=== PATIENT | female | born 1970 | race Caucasian/White ===

== ENCOUNTER 2023-08-11 04:54 | Emergency (ER) | payer OTHER ==
[~2023-08-11] VITALS: Ht 170.2 cm; Wt 86.0 kg
[2023-08-11 06:05] LABS: BASOPHILS # (AUTO) 0.1 X10'3 (0-0.2); BASOPHILS % (AUTO) 0.7 % (0-1); EOSINOPHILS # (AUTO) 0.3 X10'3 (0-0.9); EOSINOPHILS % (AUTO) 4.2 % (0-6); HEMATOCRIT 33.6 % (35.0-45.0); HEMOGLOBIN 11.1 g/dl (12.0-16.0); LYMPHOCYTES # (AUTO) 1.9 X10'3 (1.1-4.8); LYMPHOCYTES % (AUTO) 24.1 % (21-51); MEAN CORPUSCULAR HEMOGLOBIN 34.9 PG (27.0-31.0); MEAN CORPUSCULAR HGB CONC 33.1 g/dL (33.0-36.5); MEAN CORPUSCULAR VOLUME 105.3 FL (78-98); MEAN PLATELET VOLUME 7.6 FL (7.4-10.4); MONOCYTES # (AUTO) 0.7 X10'3 (0-0.9); MONOCYTES % (AUTO) 8.4 % (2-12); NEUTROPHILS % (AUTO) 62.6 % (42-75); PLATELET COUNT 160 X10'3 (140-440); RED BLOOD COUNT 3.19 X10'6 (4.20-5.60); RED CELL DISTRIBUTION WIDTH 15.1 % (11.5-14.5)
[2023-08-11 06:11] LABS: INR 1.7 INR; PROTHROMBIN TIME 17.5 SECONDS (9.0-12.0)
[2023-08-11 06:22] LABS: ALANINE AMINOTRANSFERASE 14 U/L (12-78); ALBUMIN 2.2 G/DL (3.4-5.0); ALKALINE PHOSPHATASE 154 IU/L (46-116); ANION GAP 6 (8-16); ASPARTATE AMINO TRANSFERASE 109 U/L (10-37); BILIRUBIN,TOTAL 4.5 MG/DL (0.1-1.0); BLOOD UREA NITROGEN 9 MG/DL (7-18); BUN/CREATININE RATIO 10.2 (10.0-20.0); CALCIUM 8.2 MG/DL (8.5-10.1); CHLORIDE 101 MMOL/L (99-107); CREATININE 0.88 MG/DL (0.40-0.90); ETHANOL < 10 MG/DL (<10); LIPASE 15 U/L (16-77); MAGNESIUM 1.8 MG/DL (1.5-2.4); PRO BRAIN NATRIURETIC PEPTIDE 544 PG/ML (0-125); SODIUM 134 MMOL/L (135-145); TOTAL CARBON DIOXIDE 26.8 MMOL/L (24-32); eCRCL 72 ML/MIN; eGFR 67 ML/MIN
[2023-08-11 06:24] LABS: ALBUMIN/GLOBULIN RATIO 0.5 (1.1-1.5); GLUCOSE 98 MG/DL (70-104); TOTAL PROTEIN 6.9 G/DL (6.4-8.2)
[2023-08-11 06:26] LABS: POTASSIUM 2.7 MMOL/L (3.5-5.1)
[2023-08-11] MEDS ORDERED: potassium Cl 20 mEq SR tablet PO STA (06:28)
[2023-08-11] MEDS ORDERED: potassium Cl 20mEq/100mL bag 100 ML IV SCH (06:30)
[2023-08-11] MEDS ORDERED: albumin (human) 25% 100 ML IV solution IV ONE (06:45)
[2023-08-11] MEDS ORDERED: phytonadione inj. 10 MG in normal saline 100ml IV soln 100 ML IV ONE (06:45)
[2023-08-11] MEDS ORDERED: normal saline 1000ml 1,000 ML IV ONE (06:45)
[2023-08-11] MEDS ORDERED: phytonadione 10 MG/1 ML amp PO ONE (07:00)
[2023-08-11] MEDS ORDERED: iohexol 300mg/ml 100ml inj. ONE (07:05)
--- NOTE | 2023-08-11 09:28 | NUR ---
PT WITH MOTHER AT BEDSIDE. POTASSIUM IV INFUSED WITH NS. ALBUMIN INFUSING AND WAITING FOR PARACENTESIS.
--- NOTE | 2023-08-11 10:56 | NUR ---
PROVIDER IS BEDSIDE PERFORMING PARACENTESIS. PROCEDURE AND ALL QUESTIONS ANSWERED. CONSENT SIGNED.
[2023-08-11 12:41] VITALS: BP 103/75; PULSE 91; RESP 18; TEMP 97.8; O2SAT 99
== END 2023-08-11 12:46 | disposition home or self-care (01) ==
LOC: ER 04:54
DX: K74.69 Other cirrhosis of liver (principal)
CPT/HCPCS: 36415; 49082; 71045; 74177; 80053; 80320; 83690; 83735; 83880; 85025; 85610; 96361; 96365; 96366; 99285; J3430; J3480; J3490; J7030; P9047; Q9967; 96375; A6449

== ENCOUNTER 2023-08-20 06:48 | Day surgery (SDC) | payer OTHER ==
[~2023-08-20] VITALS: Ht 170.2 cm; Wt 81.5 kg
[2023-08-20] VITALS (7 sets, daily range): BP systolic 105–130; BP diastolic 64–84; PULSE 75–94; RESP 15–17; TEMP 98.4; O2SAT 94–100
[2023-08-20] MEDS ORDERED: albumin 25% 100mL bottle x 1 IV PRN (07:10)
[2023-08-20] MEDS ORDERED: FURO40TA4 PO (07:13)
[2023-08-20] MEDS ORDERED: POTA10CA85 PO (07:13)
[2023-08-20] MEDS ORDERED: IBUP200C5 PO (07:13)
[2023-08-20] MEDS ORDERED: OMEP20TA43 PO (07:13)
== END 2023-08-20 10:18 | disposition home or self-care (01) ==
LOC: SSTAY O 06:48
PROVIDERS: ATTEND Radiology Vascular & Interventional Radiology
DX: K70.31 Alcoholic cirrhosis of liver with ascites (principal); K21.9 Gastro-esophageal reflux disease without esophagitis; Z90.49 Acquired absence of other specified parts of digestive tract; Z98.84 Bariatric surgery status; F10.21 Alcohol dependence, in remission; Z79.899 Other long term (current) drug therapy
CPT/HCPCS: 49083; C1729; P9047; A6258; A6449

== ENCOUNTER 2023-08-27 06:51 | Day surgery (SDC) | payer OTHER ==
[~2023-08-27] VITALS: Ht 170.2 cm; Wt 77.2 kg
[2023-08-27] VITALS (8 sets, daily range): BP systolic 96–112; BP diastolic 57–71; PULSE 73–104; RESP 14–16; TEMP 98.5; O2SAT 95–100
[~2023-08-27 06:51] MED LIST: FURO40TA4 PO; IBUP200C5 PO; OMEP20TA43 PO; POTA10CA85 PO
[2023-08-27] MEDS ORDERED: MAGN250T11 PO (07:02)
[2023-08-27] MEDS ORDERED: albumin 25% 100mL bottle x 1 IV PRN (07:20)
== END 2023-08-27 10:30 | disposition home or self-care (01) ==
LOC: SSTAY O 06:51
PROVIDERS: ATTEND Radiology Vascular & Interventional Radiology
DX: K70.31 Alcoholic cirrhosis of liver with ascites (principal); K21.9 Gastro-esophageal reflux disease without esophagitis; Z90.49 Acquired absence of other specified parts of digestive tract; Z98.84 Bariatric surgery status; F10.91 Alcohol use, unspecified, in remission; Z98.890 Other specified postprocedural states; Z79.899 Other long term (current) drug therapy
CPT/HCPCS: 49083; C1729; P9047; A6258; A6449

== ENCOUNTER 2023-09-03 07:16 | Day surgery (SDC) | payer OTHER ==
[2023-09-03] VITALS (9 sets, daily range): BP systolic 100–131; BP diastolic 58–80; PULSE 78–96; RESP 12–18; TEMP 97.7; O2SAT 92–100
[~2023-09-03] VITALS: Ht 170.2 cm; Wt 75.1 kg
[~2023-09-03 07:16] MED LIST changes: +MAGN250T11 PO
[2023-09-03] MEDS ORDERED: normal saline 1000ml 1,000 ML IV PRN (07:35)
[2023-09-03] MEDS ORDERED: albumin 25% 100mL bottle x 1 IV PRN (07:35)
== END 2023-09-03 10:55 | disposition home or self-care (01) ==
LOC: SSTAY O 07:16
PROVIDERS: ATTEND Radiology Diagnostic Radiology
DX: K70.31 Alcoholic cirrhosis of liver with ascites (principal); K21.9 Gastro-esophageal reflux disease without esophagitis; Z90.49 Acquired absence of other specified parts of digestive tract; Z98.84 Bariatric surgery status; F10.91 Alcohol use, unspecified, in remission; Z98.890 Other specified postprocedural states; Z79.899 Other long term (current) drug therapy
CPT/HCPCS: 49083; C1729; J7030; P9047; A4620; A6258; A6449

== ENCOUNTER 2023-09-10 07:30 | Day surgery (SDC) | payer OTHER ==
[2023-09-10] VITALS (8 sets, daily range): BP systolic 99–130; BP diastolic 47–71; PULSE 84–102; RESP 14–16; TEMP 97.8; O2SAT 100
[~2023-09-10] VITALS: Ht 170.2 cm; Wt 74.8 kg
[2023-09-10] MEDS ORDERED: normal saline 1000ml 1,000 ML IV PRN (07:50)
[2023-09-10] MEDS ORDERED: albumin 25% 100mL bottle x 1 IV PRN (07:50)
== END 2023-09-10 10:05 | disposition home or self-care (01) ==
LOC: SSTAY O 07:30
PROVIDERS: ATTEND Radiology Vascular & Interventional Radiology
DX: K70.31 Alcoholic cirrhosis of liver with ascites (principal); K21.9 Gastro-esophageal reflux disease without esophagitis; Z98.84 Bariatric surgery status; Z90.49 Acquired absence of other specified parts of digestive tract; Z72.89 Other problems related to lifestyle
CPT/HCPCS: 49083; C1729; A6258; A6449

== ENCOUNTER 2023-09-16 10:22 | Inpatient (IN) | payer OTHER ==
[~2023-09-16] VITALS: Ht 170.2 cm; Wt 72.4 kg
[2023-09-16] VITALS (11 sets, daily range): BP systolic 86–108; BP diastolic 47–64; PULSE 98–112; RESP 16–19; TEMP 97.3–98.4; O2SAT 97–100
[2023-09-16] MEDS ORDERED: ondansetron/PF 4mg/2ml inj IV ONE (10:50)
[2023-09-16] MEDS ORDERED: pantoprazole 40mg IV 80 MG in normal saline 100ml IV soln 100 ML IV ONE ×2 (10:50→11:00)
[2023-09-16] MEDS ORDERED: morphine 4 MG/ML inj SYRINge IV ONE (10:50)
[2023-09-16] MEDS ORDERED: normal saline 1000ML IV soln IVB ONE (10:50)
[2023-09-16] MEDS ORDERED: pantoprazole 40MG/NS 100ML BAG 100 ML IV ONE (10:55)
[2023-09-16] MEDS ORDERED: pantoprazole 40 MG vial IV ONE (11:05)
[2023-09-16] MEDS ORDERED: morphine 2 MG/ML inj. syringe IV ONE (11:10)
[2023-09-16] MEDS: pantoprazole 40MG/NS 100ML BAG 100 ML IV SCH ×2 (11:28→18:50)
[2023-09-16 11:30] LABS: BASOPHILS # (AUTO) 0.1 X10'3 (0-0.2); BASOPHILS % (AUTO) 0.9 % (0-1); EOSINOPHILS # (AUTO) 0.2 X10'3 (0-0.9); EOSINOPHILS % (AUTO) 2.4 % (0-6); HEMATOCRIT 26.1 % (35.0-45.0); HEMOGLOBIN 8.9 g/dl (12.0-16.0); LYMPHOCYTES # (AUTO) 1.4 X10'3 (1.1-4.8); LYMPHOCYTES % (AUTO) 14.4 % (21-51); MEAN CORPUSCULAR HEMOGLOBIN 33.5 PG (27.0-31.0); MEAN CORPUSCULAR HGB CONC 34.2 g/dL (33.0-36.5); MEAN CORPUSCULAR VOLUME 97.9 FL (78-98); MEAN PLATELET VOLUME 7.3 FL (7.4-10.4); MONOCYTES # (AUTO) 0.7 X10'3 (0-0.9); MONOCYTES % (AUTO) 6.8 % (2-12); NEUTROPHILS # (AUTO) 7.2 X10'3 (1.8-7.7); NEUTROPHILS % (AUTO) 75.5 % (42-75); PLATELET COUNT 168 X10'3 (140-440); RED BLOOD COUNT 2.66 X10'6 (4.20-5.60); RED CELL DISTRIBUTION WIDTH 14.8 % (11.5-14.5); WHITE BLOOD COUNT 9.5 X10'3 (4.5-11.0)
[2023-09-16 11:44] LABS: ALANINE AMINOTRANSFERASE 16 U/L (12-78); ALBUMIN 2.1 G/DL (3.4-5.0); ALKALINE PHOSPHATASE 113 IU/L (46-116); ANION GAP 10 (8-16); ASPARTATE AMINO TRANSFERASE 69 U/L (10-37); BILIRUBIN,TOTAL 4.4 MG/DL (0.1-1.0); BLOOD UREA NITROGEN 38 MG/DL (7-18); BUN/CREATININE RATIO 27.5 (10.0-20.0); CALCIUM 8.6 MG/DL (8.5-10.1); CHLORIDE 99 MMOL/L (99-107); CREATININE 1.38 MG/DL (0.40-0.90); LIPASE 26 U/L (16-77); MAGNESIUM 1.9 MG/DL (1.5-2.4); POTASSIUM 3.4 MMOL/L (3.5-5.1); SODIUM 133 MMOL/L (135-145); TOTAL CARBON DIOXIDE 24.5 MMOL/L (24-32); eCRCL 46 ML/MIN; eGFR 40 ML/MIN
[2023-09-16 11:52] LABS: ALBUMIN/GLOBULIN RATIO 0.5 (1.1-1.5); GLUCOSE 119 MG/DL (70-104); TOTAL PROTEIN 6.6 G/DL (6.4-8.2)
[2023-09-16 13:02] LABS: INR 1.6 INR; PROTHROMBIN TIME 16.9 SECONDS (9.0-12.0)
[2023-09-16] MEDS ORDERED: normal saline 1000ml 1,000 ML IV ONE ×2 (13:20→13:25)
[2023-09-16 14:01] LABS: BASOPHILS # (AUTO) 0.1 X10'3 (0-0.2); BASOPHILS % (AUTO) 0.6 % (0-1); EOSINOPHILS # (AUTO) 0.1 X10'3 (0-0.9); EOSINOPHILS % (AUTO) 0.8 % (0-6); HEMOGLOBIN 7.5 g/dl (12.0-16.0); LYMPHOCYTES # (AUTO) 1.9 X10'3 (1.1-4.8); LYMPHOCYTES % (AUTO) 19.5 % (21-51); MEAN CORPUSCULAR HEMOGLOBIN 34.1 PG (27.0-31.0); MEAN CORPUSCULAR HGB CONC 34.8 g/dL (33.0-36.5); MEAN PLATELET VOLUME 7.2 FL (7.4-10.4); MONOCYTES # (AUTO) 0.7 X10'3 (0-0.9); MONOCYTES % (AUTO) 7.2 % (2-12); NEUTROPHILS # (AUTO) 7.2 X10'3 (1.8-7.7); NEUTROPHILS % (AUTO) 71.9 % (42-75); PLATELET COUNT 134 X10'3 (140-440); RED BLOOD COUNT 2.21 X10'6 (4.20-5.60); RED CELL DISTRIBUTION WIDTH 14.7 % (11.5-14.5)
[2023-09-16 14:09] LABS: HEMATOCRIT 21.7 % (35.0-45.0)
[2023-09-16] MEDS ORDERED: MIDAZolam 1 MG/ML 5ML VIAL ONE (15:59)
[2023-09-16] MEDS ORDERED: fentaNYL/PF 50MCG/1 ML 2ML syringe ONE (15:59)
[2023-09-16] MEDS ORDERED: magnesium 4gm in 100ml NS 100 ML IV PRN (17:40)
[2023-09-16] MEDS ORDERED: HYDROcodone/acetaminophen 5mg/325mg tablet PO PRN (17:40)
[2023-09-16] MEDS ORDERED: magnesium hydroxide 30ml (MOM) UD suspension PO PRN (17:40)
[2023-09-16] MEDS ORDERED: potassium Cl 20 mEq SR tablet PO PRN (17:40)
[2023-09-16] MEDS ORDERED: diphenhydrAMINE 25mg capsule PO PRN (17:40)
[2023-09-16] MEDS ORDERED: HYDROcodone/acetaminophen 10/325mg tab PO PRN (17:40)
[2023-09-16] MEDS ORDERED: magnesium 2GM in 50ml NS 50 ML IV PRN (17:40)
[2023-09-16] MEDS ORDERED: morphine 2 MG/ML inj. syringe IV PRN ×2 (17:40)
[2023-09-16] MEDS ORDERED: acetaminophen 650mg rectal suppository RC PRN (17:40)
[2023-09-16] MEDS ORDERED: mag hydrox/Alum hydrox/simeth 30ml oral suspension PO PRN (17:40)
[2023-09-16] MEDS ORDERED: acetaminophen 325mg tablet PO PRN ×2 (17:40)
[2023-09-16] MEDS ORDERED: potassium Cl 40MEQ/1/2NS 520ml 520 ML IV PRN (17:40)
[2023-09-16] MEDS ORDERED: ondansetron/PF 4mg/2ml inj IV PRN (17:40)
[2023-09-16] MEDS ORDERED: pantoprazole 40MG/NS 100ML BAG 100 ML IV SCH (17:40)
[2023-09-16] MEDS: normal saline 1000ml 1,000 ML IV SCH (18:50)
[2023-09-16] MEDS: K and/or MAG REPLACEMENT MC SCH (18:51)
[2023-09-16] MEDS: docusate sod 100mg capsule PO SCH (18:52)
[2023-09-16 20:48] LABS: HEMATOCRIT 23.3 % (35.0-45.0); HEMOGLOBIN 8.1 g/dl (12.0-16.0); MEAN CORPUSCULAR HEMOGLOBIN 33.2 PG (27.0-31.0); MEAN CORPUSCULAR HGB CONC 34.7 g/dL (33.0-36.5); MEAN CORPUSCULAR VOLUME 95.5 FL (78-98); MEAN PLATELET VOLUME 7.2 FL (7.4-10.4); PLATELET COUNT 135 X10'3 (140-440); RED BLOOD COUNT 2.44 X10'6 (4.20-5.60); RED CELL DISTRIBUTION WIDTH 15.6 % (11.5-14.5); WHITE BLOOD COUNT 10.6 X10'3 (4.5-11.0)
[2023-09-16] MEDS: CefTRIAXone/D5W-Rocephin 1gm 50 ML IV SCH (21:18)
[2023-09-16] MEDS: hydrOXYzine 25 MG tablet PO SCH (21:18)
[2023-09-16 22:30] LABS: HEMATOCRIT 22.1 % (35.0-45.0); HEMOGLOBIN 7.7 g/dl (12.0-16.0); MEAN CORPUSCULAR HEMOGLOBIN 33.3 PG (27.0-31.0); MEAN CORPUSCULAR HGB CONC 34.8 g/dL (33.0-36.5); MEAN CORPUSCULAR VOLUME 95.7 FL (78-98); MEAN PLATELET VOLUME 7.2 FL (7.4-10.4); PLATELET COUNT 122 X10'3 (140-440); RED BLOOD COUNT 2.31 X10'6 (4.20-5.60); RED CELL DISTRIBUTION WIDTH 15.3 % (11.5-14.5); WHITE BLOOD COUNT 9.5 X10'3 (4.5-11.0)
[2023-09-17] VITALS (9 sets, daily range): BP systolic 92–99; BP diastolic 46–58; PULSE 90–106; RESP 14–21; TEMP 98–98.8; O2SAT 97–100
[2023-09-17 02:18] LABS: BASOPHILS # (AUTO) 0.1 X10'3 (0-0.2); BASOPHILS % (AUTO) 0.8 % (0-1); EOSINOPHILS # (AUTO) 0.2 X10'3 (0-0.9); EOSINOPHILS % (AUTO) 2.2 % (0-6); HEMOGLOBIN 7.7 g/dl (12.0-16.0); LYMPHOCYTES # (AUTO) 2.9 X10'3 (1.1-4.8); LYMPHOCYTES % (AUTO) 31.8 % (21-51); MEAN CORPUSCULAR HEMOGLOBIN 33.5 PG (27.0-31.0); MEAN CORPUSCULAR HGB CONC 34.8 g/dL (33.0-36.5); MEAN PLATELET VOLUME 7.1 FL (7.4-10.4); MONOCYTES # (AUTO) 0.6 X10'3 (0-0.9); MONOCYTES % (AUTO) 6.6 % (2-12); NEUTROPHILS # (AUTO) 5.3 X10'3 (1.8-7.7); NEUTROPHILS % (AUTO) 58.6 % (42-75); PLATELET COUNT 119 X10'3 (140-440); RED BLOOD COUNT 2.29 X10'6 (4.20-5.60); RED CELL DISTRIBUTION WIDTH 15.8 % (11.5-14.5); WHITE BLOOD COUNT 9.1 X10'3 (4.5-11.0)
[2023-09-17 03:21] LABS: ALANINE AMINOTRANSFERASE 16 U/L (12-78); ALBUMIN 1.8 G/DL (3.4-5.0); ALKALINE PHOSPHATASE 91 IU/L (46-116); ANION GAP 7 (8-16); ASPARTATE AMINO TRANSFERASE 57 U/L (10-37); BILIRUBIN,TOTAL 4.6 MG/DL (0.1-1.0); BLOOD UREA NITROGEN 40 MG/DL (7-18); CHLORIDE 103 MMOL/L (99-107); CREATININE 1.48 MG/DL (0.40-0.90); GLUCOSE 105 MG/DL (70-104); HDL CHOLESTEROL 33 MG/DL (35-60); LDL CHOLESTEROL 60 MG/DL (50-100); MAGNESIUM 1.9 MG/DL (1.5-2.4); POTASSIUM 3.6 MMOL/L (3.5-5.1); SODIUM 133 MMOL/L (135-145); eCRCL 43 ML/MIN; eGFR 37 ML/MIN
[2023-09-17 03:29] LABS: ALBUMIN/GLOBULIN RATIO 0.5 (1.1-1.5); PHOSPHORUS 3.9 MG/DL (2.3-4.5); TOTAL PROTEIN 5.5 G/DL (6.4-8.2)
[2023-09-17 03:30] LABS: CHOL/HDL RATIO 3.3 (0.00-4.99); CHOLESTEROL 109 MG/DL (0-200); TRIGLYCERIDES 62 MG/DL (20-135)
[2023-09-17 05:46] LABS: BILIRUBIN,URINE SMALL (Neg); CLARITY,URINE SLIGHTLY CLOUDY (Clear); COLOR,URINE YELLOW (Yellow); GLUCOSE, URINE NEGATIVE (Neg); KETONES,URINE TRACE mg/dl (Neg); LEUKOCYTE ESTERASE ,URINE NEGATIVE (Neg); OCCULT BLOOD,URINE NEGATIVE (Neg); PH,URINE 5.5 (4.8-8.0); PROTEIN,URINE NEGATIVE (Neg); URINE HCG NEGATIVE (NEG); UROBILINOGEN,URINE 0.2 E.U/dL (0.2-1.0)
[2023-09-17 05:47] LABS: UA COLLECTION TYPE VOIDED
[2023-09-17 05:52] LABS: NITRITES, URINE NEGATIVE (Neg)
[2023-09-17 05:59] LABS: SQUAMOUS EPITHELIAL CELL,UR MANY /LPF (FEW)
[2023-09-17 06:00] LABS: HYALINE CASTS 0-3 /LPF (NEGATIVE)
[2023-09-17 06:01] LABS: BACTERIA,URINE 1+ /HPF (Neg); RBC,URINE 0-2 /HPF (0-2); WBC,URINE 0-4 /HPF (0-4)
[2023-09-17] MEDS: K and/or MAG REPLACEMENT MC SCH ×2 (06:54→19:58)
[2023-09-17] MEDS: normal saline 1000ml 1,000 ML IV SCH ×2 (07:00→20:20)
[2023-09-17] MEDS: docusate sod 100mg capsule PO SCH ×2 (07:01→19:51)
[2023-09-17] MEDS: furosemide 20MG tablet PO SCH (07:02)
[2023-09-17] MEDS: CefTRIAXone/D5W-Rocephin 1gm 50 ML IV SCH (07:13)
[2023-09-17] MEDS: pantoprazole 40 MG vial IV SCH ×2 (07:13→19:50)
[2023-09-17] MEDS: spironolactone 50 MG tablet PO SCH (08:26)
[2023-09-17 09:20] LABS: HEMOGLOBIN 7.2 g/dl (12.0-16.0); MEAN CORPUSCULAR HEMOGLOBIN 32.8 PG (27.0-31.0); MEAN CORPUSCULAR HGB CONC 34.1 g/dL (33.0-36.5); MEAN CORPUSCULAR VOLUME 96.3 FL (78-98); MEAN PLATELET VOLUME 7.2 FL (7.4-10.4); PLATELET COUNT 109 X10'3 (140-440); RED CELL DISTRIBUTION WIDTH 15.5 % (11.5-14.5)
[2023-09-17 09:24] LABS: HEMATOCRIT 21.2 % (35.0-45.0)
[2023-09-17] MEDS: hydrOXYzine 25 MG tablet PO SCH (19:52)
[2023-09-17 20:02] LABS: HEMOGLOBIN 7.3 g/dl (12.0-16.0); MEAN CORPUSCULAR HEMOGLOBIN 33.2 PG (27.0-31.0); MEAN CORPUSCULAR HGB CONC 34.4 g/dL (33.0-36.5); MEAN CORPUSCULAR VOLUME 96.6 FL (78-98); MEAN PLATELET VOLUME 7.2 FL (7.4-10.4); PLATELET COUNT 103 X10'3 (140-440); RED BLOOD COUNT 2.19 X10'6 (4.20-5.60); RED CELL DISTRIBUTION WIDTH 15.3 % (11.5-14.5); WHITE BLOOD COUNT 6.5 X10'3 (4.5-11.0)
[2023-09-17 20:11] LABS: HEMATOCRIT 21.2 % (35.0-45.0)
[2023-09-18] VITALS (7 sets, daily range): BP systolic 88–105; BP diastolic 51–59; PULSE 54–93; RESP 13–20; TEMP 98–99.5; O2SAT 94–100
[2023-09-18] MEDS ORDERED: diazepam 5mg tablet PO ONE (03:10)
[2023-09-18] MEDS ORDERED: magnesium 4gm in 100ml NS 100 ML IV PRN (03:15)
[2023-09-18] MEDS ORDERED: potassium Cl 40MEQ/270ML bag 250 ML IV PRN (03:15)
[2023-09-18] MEDS ORDERED: magnesium 2GM in 50ml NS 50 ML IV PRN (03:15)
[2023-09-18] MEDS ORDERED: potassium Cl 20mEq/100mL bag 100 ML IV PRN (03:15)
[2023-09-18] MEDS ORDERED: potassium Cl 20 mEq SR tablet PO PRN (03:15)
[2023-09-18] MEDS ORDERED: potassium CL 10mEq/100ml bag 100 ML IV PRN (03:15)
[2023-09-18] MEDS ORDERED: potassium Cl 40MEQ/1/2NS 520ml 520 ML IV PRN (03:15)
[2023-09-18] MEDS: magnesium Cl slow-release 64mg tablet PO PRN ×3 (03:42→21:04)
[2023-09-18] MEDS: potassium Cl 20 mEq SR tablet PO PRN ×4 (03:42→21:04)
[2023-09-18 06:37] LABS: BASOPHILS % (AUTO) 0.8 % (0-1); EOSINOPHILS # (AUTO) 0.3 X10'3 (0-0.9); HEMATOCRIT 23.8 % (35.0-45.0); HEMOGLOBIN 8.1 g/dl (12.0-16.0); LYMPHOCYTES # (AUTO) 1.8 X10'3 (1.1-4.8); LYMPHOCYTES % (AUTO) 33.3 % (21-51); MEAN CORPUSCULAR HEMOGLOBIN 32.7 PG (27.0-31.0); MEAN CORPUSCULAR HGB CONC 34.1 g/dL (33.0-36.5); MONOCYTES # (AUTO) 0.4 X10'3 (0-0.9); NEUTROPHILS # (AUTO) 2.9 X10'3 (1.8-7.7); NEUTROPHILS % (AUTO) 52.9 % (42-75); PLATELET COUNT 88 X10'3 (140-440); RED BLOOD COUNT 2.49 X10'6 (4.20-5.60); RED CELL DISTRIBUTION WIDTH 15.4 % (11.5-14.5); WHITE BLOOD COUNT 5.5 X10'3 (4.5-11.0)
[2023-09-18 07:02] LABS: ALANINE AMINOTRANSFERASE 14 U/L (12-78); ALBUMIN 1.7 G/DL (3.4-5.0); ALKALINE PHOSPHATASE 82 IU/L (46-116); ANION GAP 10 (8-16); ASPARTATE AMINO TRANSFERASE 83 U/L (10-37); BILIRUBIN,TOTAL 4.1 MG/DL (0.1-1.0); BLOOD UREA NITROGEN 21 MG/DL (7-18); BUN/CREATININE RATIO 21.6 (10.0-20.0); CALCIUM 7.8 MG/DL (8.5-10.1); CHLORIDE 105 MMOL/L (99-107); CREATININE 0.97 MG/DL (0.40-0.90); GLUCOSE 88 MG/DL (70-104); MAGNESIUM 1.7 MG/DL (1.5-2.4); POTASSIUM 3.2 MMOL/L (3.5-5.1); SODIUM 137 MMOL/L (135-145); TOTAL CARBON DIOXIDE 21.7 MMOL/L (24-32); eCRCL 65 ML/MIN; eGFR 60 ML/MIN
[2023-09-18 07:16] LABS: ALBUMIN/GLOBULIN RATIO 0.5 (1.1-1.5); PHOSPHORUS 3.3 MG/DL (2.3-4.5); TOTAL PROTEIN 5.2 G/DL (6.4-8.2)
[2023-09-18] MEDS: K and/or MAG REPLACEMENT MC SCH ×2 (08:00→20:00)
[2023-09-18] MEDS: pantoprazole 40 MG vial IV SCH (08:13)
[2023-09-18] MEDS: docusate sod 100mg capsule PO SCH ×2 (08:14→20:00)
[2023-09-18] MEDS: furosemide 20MG tablet PO SCH (08:14)
[2023-09-18] MEDS: CefTRIAXone/D5W-Rocephin 1gm 50 ML IV SCH (08:14)
[2023-09-18] MEDS: spironolactone 50 MG tablet PO SCH (08:15)
[2023-09-18] MEDS: normal saline 1000ml 1,000 ML IV SCH (09:54)
[2023-09-18] MEDS: lactulose 20gm/30ml cup PO SCH (09:54)
[2023-09-18] MEDS: propranolol 10mg tablet PO SCH (09:54)
[2023-09-18] MEDS: sucralfate 1 gm tablet PO SCH ×3 (11:41→21:04)
[2023-09-18] MEDS: pantoprazole 40mg Tablet.DR PO SCH (21:04)
[2023-09-18] MEDS: hydrOXYzine 25 MG tablet PO SCH (21:04)
[2023-09-19] MEDS: normal saline 1000ml 1,000 ML IV SCH
[2023-09-19 02:00] VITALS: BP 89/53; PULSE 87; RESP 15; TEMP 99.7; O2SAT 91
[2023-09-19 06:00] VITALS: BP 102/61; PULSE 94; RESP 18; TEMP 98.3; O2SAT 100
[2023-09-19 06:31] LABS: BASOPHILS % (AUTO) 0.7 % (0-1); EOSINOPHILS # (AUTO) 0.4 X10'3 (0-0.9); EOSINOPHILS % (AUTO) 7.6 % (0-6); HEMATOCRIT 24.8 % (35.0-45.0); HEMOGLOBIN 8.4 g/dl (12.0-16.0); LYMPHOCYTES # (AUTO) 2.1 X10'3 (1.1-4.8); LYMPHOCYTES % (AUTO) 35.4 % (21-51); MEAN CORPUSCULAR HEMOGLOBIN 32.5 PG (27.0-31.0); MEAN CORPUSCULAR HGB CONC 33.7 g/dL (33.0-36.5); MEAN CORPUSCULAR VOLUME 96.4 FL (78-98); MEAN PLATELET VOLUME 7.2 FL (7.4-10.4); MONOCYTES # (AUTO) 0.4 X10'3 (0-0.9); MONOCYTES % (AUTO) 6.1 % (2-12); NEUTROPHILS # (AUTO) 2.9 X10'3 (1.8-7.7); NEUTROPHILS % (AUTO) 50.2 % (42-75); PLATELET COUNT 104 X10'3 (140-440); RED BLOOD COUNT 2.58 X10'6 (4.20-5.60); RED CELL DISTRIBUTION WIDTH 15.5 % (11.5-14.5); WHITE BLOOD COUNT 5.8 X10'3 (4.5-11.0)
[2023-09-19 06:42] LABS: ALANINE AMINOTRANSFERASE 17 U/L (12-78); ALBUMIN 1.7 G/DL (3.4-5.0); ALBUMIN/GLOBULIN RATIO 0.5 (1.1-1.5); ALKALINE PHOSPHATASE 91 IU/L (46-116); ANION GAP 7 (8-16); ASPARTATE AMINO TRANSFERASE 77 U/L (10-37); BILIRUBIN,TOTAL 3.1 MG/DL (0.1-1.0); BLOOD UREA NITROGEN 11 MG/DL (7-18); BUN/CREATININE RATIO 13.3 (10.0-20.0); CALCIUM 7.8 MG/DL (8.5-10.1); CHLORIDE 108 MMOL/L (99-107); CREATININE 0.83 MG/DL (0.40-0.90); GLUCOSE 89 MG/DL (70-104); MAGNESIUM 1.7 MG/DL (1.5-2.4); PHOSPHORUS 2.3 MG/DL (2.3-4.5); POTASSIUM 3.4 MMOL/L (3.5-5.1); SODIUM 136 MMOL/L (135-145); TOTAL PROTEIN 5.3 G/DL (6.4-8.2); eCRCL 76 ML/MIN; eGFR 72 ML/MIN
[2023-09-19] MEDS: docusate sod 100mg capsule PO SCH (07:28)
[2023-09-19] MEDS: propranolol 10mg tablet PO SCH (07:28)
[2023-09-19] MEDS: sucralfate 1 gm tablet PO SCH ×2 (07:28→11:37)
[2023-09-19] MEDS: furosemide 20MG tablet PO SCH (07:28)
[2023-09-19] MEDS: spironolactone 50 MG tablet PO SCH (07:28)
[2023-09-19] MEDS: lactulose 20gm/30ml cup PO SCH (07:28)
[2023-09-19] MEDS: pantoprazole 40mg Tablet.DR PO SCH (07:28)
[2023-09-19] MEDS: magnesium Cl slow-release 64mg tablet PO PRN (07:32)
[2023-09-19] MEDS: potassium Cl 20 mEq SR tablet PO PRN (07:32)
[2023-09-19] MEDS: K and/or MAG REPLACEMENT MC SCH (08:00)
[2023-09-19 10:04] VITALS: RESP 18; O2SAT 98
[2023-09-19] MEDS ORDERED: LACT10SO7 PO (10:12)
[2023-09-19] MEDS ORDERED: SPIR50TA5 PO (10:12)
[2023-09-19] MEDS ORDERED: PANT40TA54 PO (10:12)
[2023-09-19] MEDS ORDERED: FOLI0.4T6 PO (10:12)
[2023-09-19] MEDS ORDERED: MULT-1074 PO (10:12)
[2023-09-19] MEDS ORDERED: SUCR1TAB34 PO (10:12)
[2023-09-19] MEDS ORDERED: PROP10TA10 PO (10:12)
[2023-09-19] MEDS ORDERED: FURO20TA4 PO (10:38)
[2023-09-19] MEDS ORDERED: FERR324T4 PO (10:38)
== END 2023-09-19 12:02 | disposition home or self-care (01) | DRG 377 ==
LOC: ER 10:22 → ED HOLD 17:43 → PCU 3S 09-17 13:01
PROVIDERS: ADMIT Family Medicine; ATTEND Family Medicine
PROC: 30233N1 Transfusion of Nonautologous Red Blood Cells into Peripheral Vein, Percutaneous Approach (ICD-10-PCS; 2023-09-16)
PROC: 0W9G3ZZ Drainage of Peritoneal Cavity, Percutaneous Approach (ICD-10-PCS; principal; 2023-09-17)
DX: K25.4 Chronic or unspecified gastric ulcer with hemorrhage (principal); N17.0 Acute kidney failure with tubular necrosis; R57.8 Other shock; D62 Acute posthemorrhagic anemia; K70.31 Alcoholic cirrhosis of liver with ascites; I85.10 Secondary esophageal varices without bleeding; Z79.899 Other long term (current) drug therapy; Z87.11 Personal history of peptic ulcer disease; E83.42 Hypomagnesemia; E87.6 Hypokalemia; Z90.49 Acquired absence of other specified parts of digestive tract
CPT/HCPCS: 36415; 36430; 43227; 43236; 43255; 49083; 74176; 80053; 80061; 81001; 81025; 82103; 82140; 83036; 83690; 83735; 84100; 85025; 85027; 85610; 86870; 86885; 86900; 86901; 86902; 86905; 86922; 87081; 99152; 99153; 99285; A4620; A6258; C9113; G0378; J0696; J2250; J2405; J3010; J7030; J7040; P9016; Q0177

== ENCOUNTER 2023-09-24 07:19 | Day surgery (SDC) | payer OTHER ==
[2023-09-24] VITALS (7 sets, daily range): BP systolic 92–106; BP diastolic 62–71; PULSE 78–85; RESP 15–17; TEMP 97.9; O2SAT 98–100
[~2023-09-24] VITALS: Ht 170.2 cm; Wt 78.7 kg
[~2023-09-24 07:19] MED LIST changes: +FERR324T4 PO; +FOLI0.4T6 PO; +FURO20TA4 PO; -FURO40TA4 PO; -IBUP200C5 PO; +LACT10SO7 PO; -MAGN250T11 PO; +MULT-1074 PO; -OMEP20TA43 PO; +PANT40TA54 PO; -POTA10CA85 PO; +PROP10TA10 PO; +SPIR50TA5 PO; +SUCR1TAB34 PO
[2023-09-24] MEDS ORDERED: albumin 25% 100mL bottle x 1 IV PRN (07:35)
[2023-09-24] MEDS ORDERED: POTA10CA85 PO (07:54)
[2023-09-24] MEDS ORDERED: PROP10TA10 PO (08:43)
[2023-09-24] MEDS ORDERED: PANT-47 PO (08:43)
[2023-09-24] MEDS ORDERED: FOLI0.4T6 PO (08:43)
[2023-09-24] MEDS ORDERED: SPIR100T5 PO (08:43)
[2023-09-24] MEDS ORDERED: FURO-150 PO (08:43)
[2023-09-24] MEDS ORDERED: MULT-1085 PO (08:43)
[2023-09-24] MEDS ORDERED: SUCR1TAB PO (08:43)
[2023-09-24] MEDS ORDERED: LACT10SO7 PO (08:43)
== END 2023-09-24 10:16 | disposition home or self-care (01) ==
LOC: SSTAY O 07:19
PROVIDERS: ATTEND Radiology Vascular & Interventional Radiology
DX: K70.31 Alcoholic cirrhosis of liver with ascites (principal); D50.0 Iron deficiency anemia secondary to blood loss (chronic); K21.9 Gastro-esophageal reflux disease without esophagitis; Z87.19 Personal history of other diseases of the digestive system; Z98.890 Other specified postprocedural states; Z98.84 Bariatric surgery status; Z90.49 Acquired absence of other specified parts of digestive tract; F10.21 Alcohol dependence, in remission; Z79.899 Other long term (current) drug therapy
CPT/HCPCS: 49083; C1729; P9047; A6258; A6449

== ENCOUNTER 2023-10-08 06:26 | Day surgery (SDC) | payer OTHER ==
[~2023-10-08] VITALS: Ht 170.2 cm; Wt 72.4 kg
[2023-10-08] VITALS (8 sets, daily range): BP systolic 82–95; BP diastolic 52–64; PULSE 81–84; RESP 16–18; TEMP 98.2; O2SAT 100
[~2023-10-08 06:26] MED LIST changes: -FERR324T4 PO; +FURO-150 PO; -FURO20TA4 PO; -MULT-1074 PO; +MULT-1085 PO; +PANT-47 PO; -PANT40TA54 PO; +POTA10CA85 PO; +SPIR100T5 PO; -SPIR50TA5 PO; +SUCR1TAB PO; -SUCR1TAB34 PO
[2023-10-08] MEDS ORDERED: normal saline 1000ml 1,000 ML IV PRN (06:45)
[2023-10-08] MEDS ORDERED: albumin 25% 100mL bottle x 1 IV PRN (06:45)
== END 2023-10-08 09:40 | disposition home or self-care (01) ==
LOC: SSTAY O 06:26
PROVIDERS: ATTEND Radiology Vascular & Interventional Radiology
DX: R18.8 Other ascites (principal); R14.0 Abdominal distension (gaseous); K21.9 Gastro-esophageal reflux disease without esophagitis; Z90.49 Acquired absence of other specified parts of digestive tract; Z98.84 Bariatric surgery status
CPT/HCPCS: 49083; C1729; J3490; P9047; A6258

== ENCOUNTER 2023-10-15 07:58 | Day surgery (SDC) | payer OTHER ==
[2023-10-15] VITALS (7 sets, daily range): BP systolic 95–107; BP diastolic 47–67; PULSE 76–80; RESP 14–16; TEMP 98; O2SAT 100
[~2023-10-15] VITALS: Ht 170.2 cm; Wt 71.2 kg
[2023-10-15] MEDS ORDERED: albumin 25% 100mL bottle x 1 IV PRN (08:20)
== END 2023-10-15 10:45 | disposition home or self-care (01) ==
LOC: SSTAY O 07:58
PROVIDERS: ATTEND Radiology Vascular & Interventional Radiology
DX: K70.31 Alcoholic cirrhosis of liver with ascites (principal); D62 Acute posthemorrhagic anemia; K21.9 Gastro-esophageal reflux disease without esophagitis; Z87.19 Personal history of other diseases of the digestive system; Z98.84 Bariatric surgery status; Z90.49 Acquired absence of other specified parts of digestive tract; F10.21 Alcohol dependence, in remission; Z98.890 Other specified postprocedural states; Z79.899 Other long term (current) drug therapy
CPT/HCPCS: 49083; C1729; P9047; 92960; A6258; A6449

== ENCOUNTER 2023-10-22 06:37 | Day surgery (SDC) | payer OTHER ==
[~2023-10-22] VITALS: Ht 170.2 cm; Wt 70.1 kg
[2023-10-22] VITALS (8 sets, daily range): BP systolic 85–101; BP diastolic 54–65; PULSE 90–101; RESP 16; TEMP 98.7; O2SAT 100
[2023-10-22] MEDS ORDERED: albumin 25% 100mL bottle x 1 IV PRN (06:55)
[2023-10-22] MEDS ORDERED: OMEP20TA43 PO (07:25)
[2023-10-22] MEDS ORDERED: HYDR-3686 PO (07:25)
[2023-10-22] MEDS ORDERED: PANT40SU2 PO (08:52)
== END 2023-10-22 09:30 | disposition home or self-care (01) ==
LOC: SSTAY O 06:37
PROVIDERS: ATTEND Radiology Vascular & Interventional Radiology
DX: K70.31 Alcoholic cirrhosis of liver with ascites (principal); D62 Acute posthemorrhagic anemia; Z87.19 Personal history of other diseases of the digestive system; K21.9 Gastro-esophageal reflux disease without esophagitis; Z90.49 Acquired absence of other specified parts of digestive tract; Z98.84 Bariatric surgery status; F10.21 Alcohol dependence, in remission; Z98.890 Other specified postprocedural states; Z79.899 Other long term (current) drug therapy
CPT/HCPCS: 49083; C1729; P9047; 96360; A6258

== ENCOUNTER 2023-10-29 08:17 | Day surgery (SDC) | payer OTHER ==
[2023-10-29] VITALS (9 sets, daily range): BP systolic 90–98; BP diastolic 53–64; PULSE 78–84; RESP 14; TEMP 98.1; O2SAT 97–100
[~2023-10-29] VITALS: Ht 170.2 cm; Wt 67.7 kg
[~2023-10-29 08:17] MED LIST changes: +HYDR-3686 PO; -PANT-47 PO; +PANT40SU2 PO
[2023-10-29] MEDS: albumin 25% 100mL bottle x 1 IV PRN (10:05)
== END 2023-10-29 11:00 | disposition home or self-care (01) ==
LOC: SSTAY O 08:17
PROVIDERS: ATTEND Radiology Diagnostic Radiology
DX: K70.31 Alcoholic cirrhosis of liver with ascites (principal); D62 Acute posthemorrhagic anemia; K21.9 Gastro-esophageal reflux disease without esophagitis; Z87.19 Personal history of other diseases of the digestive system; Z90.49 Acquired absence of other specified parts of digestive tract; Z98.84 Bariatric surgery status; F10.91 Alcohol use, unspecified, in remission; Z98.890 Other specified postprocedural states; Z79.899 Other long term (current) drug therapy
CPT/HCPCS: 49083; C1729; P9047; A6258

== ENCOUNTER 2023-11-04 07:56 | Day surgery (SDC) | payer OTHER ==
[~2023-11-04] VITALS: Ht 170.2 cm; Wt 69.8 kg
[2023-11-04 08:20] VITALS: BP 89/61; PULSE 80; RESP 15; TEMP 97.9; O2SAT 97
[2023-11-04 09:21] VITALS: BP 91/60; PULSE 82; RESP 15; O2SAT 97
[2023-11-04 09:30] VITALS: RESP 15; O2SAT 97
[2023-11-04 09:38] VITALS: BP 103/61; PULSE 71; RESP 14; O2SAT 97
[2023-11-04] MEDS: albumin 25% 100mL bottle x 1 IV PRN (09:42)
[2023-11-04 09:51] VITALS: BP 90/58; PULSE 70; RESP 15; O2SAT 96
[2023-11-04 10:06] VITALS: BP 101/55; PULSE 77; RESP 14; O2SAT 99
== END 2023-11-04 10:35 | disposition home or self-care (01) ==
LOC: SSTAY O 07:56
PROVIDERS: ATTEND Radiology Vascular & Interventional Radiology
DX: K70.31 Alcoholic cirrhosis of liver with ascites (principal); K21.9 Gastro-esophageal reflux disease without esophagitis; D62 Acute posthemorrhagic anemia; Z90.49 Acquired absence of other specified parts of digestive tract; Z98.84 Bariatric surgery status; F10.91 Alcohol use, unspecified, in remission; Z98.890 Other specified postprocedural states; Z79.899 Other long term (current) drug therapy; Z87.19 Personal history of other diseases of the digestive system
CPT/HCPCS: 49083; C1729; P9047; A6258

== ENCOUNTER 2023-11-12 07:22 | Day surgery (SDC) | payer OTHER ==
[~2023-11-12] VITALS: Ht 7 cm; Wt 70.2 kg
[2023-11-12] VITALS (7 sets, daily range): BP systolic 83–94; BP diastolic 50–55; PULSE 91–96; RESP 16; TEMP 98.3; O2SAT 99–100
[~2023-11-12 07:22] MED LIST changes: -PROP10TA10 PO
[2023-11-12] MEDS ORDERED: albumin 25% 100mL bottle x 1 IV PRN (07:50)
== END 2023-11-12 10:40 | disposition home or self-care (01) ==
LOC: SSTAY O 07:22
PROVIDERS: ATTEND Radiology Vascular & Interventional Radiology
DX: K70.31 Alcoholic cirrhosis of liver with ascites (principal); D62 Acute posthemorrhagic anemia; K21.9 Gastro-esophageal reflux disease without esophagitis; Z98.890 Other specified postprocedural states; Z87.19 Personal history of other diseases of the digestive system; Z79.899 Other long term (current) drug therapy; Z90.49 Acquired absence of other specified parts of digestive tract; Z98.84 Bariatric surgery status; F10.91 Alcohol use, unspecified, in remission
CPT/HCPCS: 49083; C1729; 96360; A6258

== ENCOUNTER 2023-11-18 07:25 | Day surgery (SDC) | payer OTHER ==
[2023-11-18] VITALS (9 sets, daily range): BP systolic 90–107; BP diastolic 55–68; PULSE 77–89; RESP 16; TEMP 97.6; O2SAT 99–100
[~2023-11-18] VITALS: Ht 170.2 cm; Wt 67.4 kg
[2023-11-18] MEDS: albumin 25% 100mL bottle x 1 IV PRN (08:55)
== END 2023-11-18 09:55 | disposition home or self-care (01) ==
LOC: SSTAY O 07:25
PROVIDERS: ATTEND Radiology Vascular & Interventional Radiology
DX: R18.8 Other ascites (principal); Z53.8 Procedure and treatment not carried out for other reasons; K21.9 Gastro-esophageal reflux disease without esophagitis; Z79.899 Other long term (current) drug therapy; Z90.49 Acquired absence of other specified parts of digestive tract; Z98.84 Bariatric surgery status; Z98.890 Other specified postprocedural states
CPT/HCPCS: A6258; P9047

== ENCOUNTER 2023-11-22 16:12 | Emergency (ER) | payer OTHER ==
[~2023-11-22] VITALS: Ht 170.2 cm; Wt 65.9 kg
[~2023-11-22 16:12] MED LIST changes: -HYDR-3686 PO
[2023-11-22 16:34] VITALS: TEMP 97.8
[2023-11-22] MEDS ORDERED: fentaNYL/PF 50MCG/1 ML 2ML syringe IV ONE (17:50)
[2023-11-22] MEDS ORDERED: FURO40TA4 PO (18:19)
[2023-11-22] MEDS ORDERED: SPIR50TA5 PO (18:19)
[2023-11-22] MEDS ORDERED: LACT10SO3 PO (18:19)
[2023-11-22] MEDS: ondansetron/PF 4mg/2ml inj IV ONE (18:44)
[2023-11-22] MEDS: fentaNYL/PF 50MCG/1 ML 2ML syringe IV ONE (18:45)
[2023-11-22] MEDS: normal saline 1000ml 1,000 ML IV ONE (19:35)
[2023-11-22 21:34] VITALS: BP 90/51; PULSE 94; RESP 14; O2SAT 94
== END 2023-11-22 21:38 | disposition home or self-care (01) ==
LOC: ER 16:12
DX: K46.9 Unspecified abdominal hernia without obstruction or gangrene (principal); K70.9 Alcoholic liver disease, unspecified; F10.90 Alcohol use, unspecified, uncomplicated; Z79.899 Other long term (current) drug therapy; Z79.2 Long term (current) use of antibiotics
CPT/HCPCS: 96361; 96374; 96375; 99284; J2405; J3010; J7030; A4615

== ENCOUNTER 2023-12-01 09:53 | Emergency (ER) | payer OTHER ==
[~2023-12-01] VITALS: Ht 170.2 cm; Wt 65.5 kg
[~2023-12-01 09:53] MED LIST changes: +FURO40TA4 PO; +LACT10SO3 PO; +SPIR50TA5 PO
[2023-12-01 10:28] VITALS: TEMP 97.9
[2023-12-01 11:47] LABS: BASOPHILS # (AUTO) 0.1 X10'3 (0-0.2); BASOPHILS % (AUTO) 0.8 % (0-1); EOSINOPHILS # (AUTO) 0.2 X10'3 (0-0.9); EOSINOPHILS % (AUTO) 1.9 % (0-6); HEMATOCRIT 27.5 % (35.0-45.0); HEMOGLOBIN 9.5 g/dl (12.0-16.0); LYMPHOCYTES # (AUTO) 1.2 X10'3 (1.1-4.8); LYMPHOCYTES % (AUTO) 14.2 % (21-51); MEAN CORPUSCULAR HEMOGLOBIN 30.4 PG (27.0-31.0); MEAN CORPUSCULAR HGB CONC 34.5 g/dL (33.0-36.5); MEAN CORPUSCULAR VOLUME 88.1 FL (78-98); MEAN PLATELET VOLUME 6.5 FL (7.4-10.4); MONOCYTES # (AUTO) 0.7 X10'3 (0-0.9); MONOCYTES % (AUTO) 8.1 % (2-12); NEUTROPHILS # (AUTO) 6.2 X10'3 (1.8-7.7); PLATELET COUNT 166 X10'3 (140-440); RED BLOOD COUNT 3.12 X10'6 (4.20-5.60); RED CELL DISTRIBUTION WIDTH 15.4 % (11.5-14.5); WHITE BLOOD COUNT 8.2 X10'3 (4.5-11.0)
[2023-12-01 12:07] LABS: APTT 31 SECONDS (22-32); INR 1.6 INR; PROTHROMBIN TIME 16.5 SECONDS (9.0-12.0)
[2023-12-01 12:59] LABS: ALANINE AMINOTRANSFERASE 25 U/L (12-78); ALBUMIN 2.8 G/DL (3.4-5.0); ALKALINE PHOSPHATASE 133 IU/L (46-116); ANION GAP 11 (8-16); ASPARTATE AMINO TRANSFERASE 47 U/L (10-37); BILIRUBIN,TOTAL 4.2 MG/DL (0.1-1.0); BLOOD UREA NITROGEN 28 MG/DL (7-18); BUN/CREATININE RATIO 14.6 (10.0-20.0); CALCIUM 8.1 MG/DL (8.5-10.1); CHLORIDE 96 MMOL/L (99-107); CREATININE 1.92 MG/DL (0.40-0.90); GLUCOSE 121 MG/DL (70-104); POTASSIUM 3.9 MMOL/L (3.5-5.1); SODIUM 128 MMOL/L (135-145); TOTAL CARBON DIOXIDE 20.6 MMOL/L (24-32); eCRCL 33 ML/MIN; eGFR 27 ML/MIN
[2023-12-01 13:23] LABS: LIPASE 44 U/L (16-77); PRO BRAIN NATRIURETIC PEPTIDE 395 PG/ML (0-125)
[2023-12-01 13:25] LABS: ALBUMIN/GLOBULIN RATIO 0.7 (1.1-1.5); TOTAL PROTEIN 6.9 G/DL (6.4-8.2)
[2023-12-01 14:44] LABS: BILIRUBIN,URINE SMALL (Neg); CLARITY,URINE CLEAR (Clear); COLOR,URINE YELLOW (Yellow); GLUCOSE, URINE NEGATIVE (Neg); KETONES,URINE TRACE mg/dl (Neg); LEUKOCYTE ESTERASE ,URINE NEGATIVE (Neg); NITRITES, URINE NEGATIVE (Neg); OCCULT BLOOD,URINE NEGATIVE (Neg); PROTEIN,URINE NEGATIVE (Neg)
[2023-12-01 14:51] LABS: UA COLLECTION TYPE CLN CATCH MIDSTREAM
[2023-12-01 15:54] VITALS: BP 100/55; PULSE 91; RESP 17; O2SAT 100
== END 2023-12-01 15:58 | disposition home or self-care (01) ==
LOC: ER 09:54
DX: K70.9 Alcoholic liver disease, unspecified (principal); R06.02 Shortness of breath; R13.10 Dysphagia, unspecified; Z79.899 Other long term (current) drug therapy
CPT/HCPCS: 36415; 71045; 74176; 80053; 81003; 83605; 83690; 83880; 84145; 84484; 85025; 85610; 85730; 87040; 99285